=== PATIENT | female | born 1985 | race Caucasian/White ===

== ENCOUNTER 2022-01-04 06:12 | Inpatient (IN) | payer OTHER ==
[~2022-01-04] VITALS: Ht 165.1 cm; Wt 89.8 kg
[~2022-01-04 06:12] MED LIST: ACYCLOVIR800 MG PO; FLEXERIL10 MG PO; IBUPROFEN800 MG PO; KEFLEX500 MG PO; NEURONTIN100 MG PO; NORCO 5-325 TA1 EACH PO; PREDNISONE20 MG PO; PROZAC20 MG PO; VITAFOL-OB+DHA1 EACH
--- NOTE | 2022-01-31 08:39 | NUR ---
01/31/22 0839 Kirsty Qiu 0829 PATIENT INTO ROOM 104 FB. REPORT RECIEVED FROM NEHAL HELTON. PATIENT IS ALERT AND ORIENTED. BREATHING EQUAL AND UNLABORED. OXYGEN SATURATIONS ABOVE 95% ON ROOM AIR. SPINAL LEVEL CHECKED. FUNDAL MASSAGE COMPLETE. IVF INFUSING WITH 20 OF PIT. IV SITE LEFT FOREARM 18 GAUGE. PATENT. FATHER AT BEDSIDE HOLDING BABY NO QUESTIONS THIS RN AT BEDSIDE. 0838 PATIENT IS ALERT AND ORIENTED. BREATHING EQUAL AND UNLABORED. OXYGEN SATURATIONS ABOVE 95% ON ROOM AIR. PATIENT DENIES FEELING NAUSEATED OR PAIN. SCD'S APPLIED AND IVF INFUSING.
--- NOTE | 2022-02-01 09:51 | PR ---
[facility] [address] [facility] [place] [id number] Signed PP Progress Notes Datetime Report Generated by CPN: 02/01/2022 09:51 SUBJECTIVE: [id number] Pain: Within Normal Limits Nausea/Vomiting: Denies Vital Signs: [id number] Vital Signs: Reviewed; Within Normal Limits Notable Details: PP HGb/Hct = 9.5/29.4 EXAM: Ongoing Abdomen/Uterus: Normal Lochia: Normal Extremities: Normal Incision: Normal IMPRESSION/PLAN/PROCEDURES: [id number] Impression: Normal Progression Plan: Continue Present Management Procedures: None Progress Notes: Doing well, without complaint, Baptiste out, tolerating food well. Signing Physician: Aneta Isidro MD Copies: ~ *Electronically Signed* 02/01/22 0951 ANETA ISIDRO MD PATIENT NAME: SHARON HAMILTON PROGRESS NOTE DATE OF : 87 PHYSICIAN: ANETA ISIDRO MD RPT #: [id number] REPORT IS CONFIDENTIAL AND NOT TO BE RELEASED WITHOUT AUTHORIZATION
--- NOTE | 2022-02-01 09:53 | OR ---
[facility] [address] [place] [id number] Signed DATE OF OPERATION: 01/31/2022 SURGEON: Shashank Morgan MD Patient of Dr. Morgan. PREOPERATIVE DIAGNOSES: 1. Term . 2. Previous section x2. 3. Gestational diabetes, diet controlled. POSTOPERATIVE DIAGNOSES: 1. Term . 2. Previous section x2. 3. Gestational diabetes, diet controlled. PROCEDURE: Repeat low transverse segment section, delivery of live female infant. MOLD YARD CRANE OPERATOR: Dr. Eagle. ANESTHESIA: Spinal. ESTIMATED BLOOD LOSS: 500 mL. COMPLICATIONS: None. DRAINS: Baptiste to bladder. FINDINGS: Live female infant, weight 6 pounds 2 ounces. Apgars 8 and 9. Normal uterus, normal tubes and ovaries bilateral. DESCRIPTION OF PROCEDURE: The patient was brought to the operating room, placed in supine position. After Electronically Signed By: SHASHANK MORGAN MD 02/01/22 0953 PATIENT NAME: SHARON HAMILTON OPERATIVE REPORT DATE OF : 87 REPORT #: [id number] PHYSICIAN: SHASHANK MORGAN MD PCP: PETER MCLAUGHLIN PA-C REPORT IS CONFIDENTIAL AND NOT TO BE RELEASED WITHOUT AUTHORIZATION [address] [address] Signed adequate spinal anesthesia was obtained, she was prepped and draped in usual sterile fashion. Baptiste catheter was placed in the bladder. Pfannenstiel skin incision made through previous surgical scar. Subcutaneous tissue was dissected with the Bovie and scalpel. The fascia was nicked with scalpel and extended in transverse fashion using curved scissors. The underlying abdominal musculature was bluntly and sharply from the fascia above and below the incision. The abdominal musculature was bluntly sharply along the midline. The peritoneum grasped with hemostats, elevated, nicked with curved scissors, extended in a vertical fashion using scissors and blunt dissection. The Reid self-retaining retractor was inserted into the incision and tightened in place. The lower uterine segment was identified. The vesicouterine peritoneum was slightly elevated and was thin. This was elevated at the edge, nicked with Metzenbaum scissors, and extended transverse fashion and the bladder flap bluntly taken down. The lower uterine segment was then nicked with scalpel and extended in a transverse fashion using finger dissection, clear fluid came from the incision. The infant was noted to be in the LOT presentation. head easily delivered from the incision. Rest of the was easily delivered from the incision. The cord was doubly clamped and cut. The passed off table in good condition to awaiting nurse. The placenta was manually removed. Uterine cavity explored with a lap pad to remove any retained membranes. There was small extension downward on the right side, so this was closed up to the normal angle using a running locking stitch of 0 Monocryl. A 2nd running locking stitch of 0-Monocryl starting at the end, other end was used to close the incision. A third running stitch of 0 Monocryl was used to imbricate the entire incision and extension. Good hemostasis was noted. The entire pelvis was irrigated, suctioned, and examined, and any superficial bleeding spots cauterized with the Bovie and good hemostasis was obtained. The Reid retractor was removed. The anterior wall peritoneum closed using running stitch of 2-0 Vicryl suture. The abdominal musculature was reapproximated using interrupted stitches of 0 Vicryl suture. The abdominal wall was irrigated, suctioned, and examined, and any bleeding spots cauterized with the Bovie. The fascia was then closed using two running stitches of 0 Vicryl suture meeting in the midline. Subcutaneous tissue was irrigated, suctioned, and examined, and any bleeding spots cauterized with the Bovie. Subcutaneous tissue was closed using interrupted stitches of 3-0 Vicryl suture. Skin was reapproximated using skin clips. The patient tolerated the procedure well went to recovery room in good condition. The sponge, needle, instrument count correct at the end of the procedure. Shashank Morgan MD MJB/MODL Electronically Signed By: SHASHANK MORGAN MD 02/01/22 0953 PATIENT NAME: SHARON HAMILTON OPERATIVE REPORT DATE OF : 87 REPORT #: [id number] PHYSICIAN: SHASHANK MORGAN MD PCP: PETER MCLAUGHLIN PA-C REPORT IS CONFIDENTIAL AND NOT TO BE RELEASED WITHOUT AUTHORIZATION [facility] [address] [place] [address] [place], [place] [address] Signed /[id number] Copies: ~ Electronically Signed By: SHASHANK MORGAN MD 02/01/22 0953 PATIENT NAME: SHARON HAMILTON OPERATIVE REPORT DATE OF : 87 REPORT #: [id number] PHYSICIAN: SHASHANK MORGAN MD PCP: PETER MCLAUGHLIN PA-C REPORT IS CONFIDENTIAL AND NOT TO BE RELEASED WITHOUT AUTHORIZATION
--- NOTE | 2022-02-02 09:16 | PR ---
[facility] [address] [place] [address] Signed PP Progress Notes Datetime Report Generated by CPN: 02/02/2022 09:16 SUBJECTIVE: [id number] Pain: Within Normal Limits Nausea/Vomiting: Denies Vital Signs: [id number] Vital Signs: Reviewed; Within Normal Limits Notable Details: PP HGb/Hct = 9.5/29.4 EXAM: Met Abdomen/Uterus: Normal Lochia: Normal Extremities: Normal Incision: Normal IMPRESSION/PLAN/PROCEDURES: [id number] Impression: Normal Progression Plan: Discharge Procedures: None Progress Notes: Doing well, without complaint, ready to go home. Signing Physician: Aneta Isidro MD Copies: ~ *Electronically Signed* 02/02/22 0916 ANETA ISIDRO MD PATIENT NAME: SHARON HAMILTON PROGRESS NOTE DATE OF : 87 PHYSICIAN: ANETA ISIDRO MD RPT #: [id number] REPORT IS CONFIDENTIAL AND NOT TO BE RELEASED WITHOUT AUTHORIZATION
== END 2022-02-02 12:20 | disposition home or self-care (01) | DRG 788 ==
LOC: FBC 01-31 05:09
PROVIDERS: ADMIT General Practice; ATTEND General Practice
PROC: 10D00Z1 Extraction of Products of Conception, Low, Open Approach (ICD-10-PCS; principal; 2022-01-31 07:30)
DX: O34.211 Maternal care for low transverse scar from previous cesarean delivery (principal); Z3A.39 39 weeks gestation of pregnancy; Z37.0 Single live birth; O99.334 Smoking (tobacco) complicating childbirth; F17.210 Nicotine dependence, cigarettes, uncomplicated; Z67.10 Type A blood, Rh positive; O24.420 Gestational diabetes mellitus in childbirth, diet controlled; Z20.822 Contact with and (suspected) exposure to COVID-19; O99.03 Anemia complicating the puerperium; D64.89 Other specified anemias
CPT/HCPCS: 01961; 36415; 85027; 86850; 86900; 86901; A9270; J0690; J1100; J1885; J2001; J2274; J2405; J2590; J7121

== ENCOUNTER 2023-10-02 14:05 | Emergency (ER) | payer OTHER ==
[~2023-10-02] VITALS: Ht 160 cm; Wt 57.2 kg
[~2023-10-02 14:05] MED LIST changes: +METHYLPREDNISOLO4 M1 PO; +NAPROSYN500 MG PO
[2023-10-02 17:00] VITALS: BP 117/62
== END 2023-10-02 17:52 | disposition home or self-care (01) ==
LOC: ED 14:05
DX: H11.31 Conjunctival hemorrhage, right eye (principal); K02.9 Dental caries, unspecified; M25.521 Pain in right elbow; F17.200 Nicotine dependence, unspecified, uncomplicated
CPT/HCPCS: 80053; 83605; 85025; 99282

== ENCOUNTER 2025-01-08 09:43 | Observation (INO) | payer OTHER ==
[~2025-01-08] VITALS: Ht 160 cm; Wt 65.3 kg
[~2025-01-08 09:43] MED LIST changes: +CHLORHEXIDINE473 ML; +MUPIROCIN22 GM TOP
[2025-01-08] MEDS ORDERED: SODIUM CHLORIDE 0.9% 1,000 ML IV ONE (10:00)
[2025-01-08 10:11] LABS: BASOPHILS 0.3 % (0.1-1.2); EOSINOPHILS 2.5 % (0.7-5.8); LYMPHOCYTES 9.8 % (19.3-51.7); MCH 32.1 PG (25.6-32.2); MCHC 34.3 g/dL (32.2-35.5); MCV 93.8 fL (79.4-94.8); MONOCYTES 4.7 % (4.7-12.5); NEUTROPHILS 82.4 % (34.0-71.1); RBC 4.98 M/uL (3.93-5.22)
[2025-01-08 10:28] LABS: ALT (SGPT) 26.0 U/L (14-59); AST (SGOT) 10.0 U/L (15-37); GLOMERULAR FILTRATION RATE,EST 94.0 mL/min (>60); PROTEIN, TOTAL 8.1 g/dL (6.4-8.2); UREA NITROGEN 8.0 mg/dL (7-18)
[2025-01-08 10:31] LABS: LACTIC ACID, BLOOD 1.0 mmol/L (0.4-2.0)
[2025-01-08] MEDS ORDERED: HYDROmorphone HCL 1 MG/ML SYR IV PRN ×2 (11:45→14:30)
[2025-01-08] MEDS ORDERED: OXYCODONE/APAP 5/325 TAB PO PRN ×2 (12:15)
[2025-01-08] MEDS ORDERED: DEXTROSE 5% - LACTATED RINGERS 1,000 ML IV SCH ×2 (12:15)
[2025-01-08] MEDS ORDERED: MORPHINE SULFATE 10 MG/ML VIAL IV PRN ×2 (12:15)
[2025-01-08] MEDS ORDERED: KETOROLAC TROMETHAMINE 30 MG/ML VIAL IV PRN ×2 (12:15)
[2025-01-08] MEDS ORDERED: ROCURONIUM BROMIDE 50 MG/5 ML SYR ONE (12:27)
[2025-01-08] MEDS ORDERED: MIDAZOLAM HCL 2 MG/2 ML VIAL ONE (12:27)
[2025-01-08] MEDS ORDERED: DEXAMETHASONE SOD PHOS 4 MG/ML VIAL ONE (12:27)
[2025-01-08] MEDS ORDERED: SUGAMMADEX SODIUM 200 MG/2 ML ML ONE (12:27)
[2025-01-08] MEDS ORDERED: SUCCINYLCHOLINE IN 0.9% NACL 200 MG/10 ML SYRINGE ONE (12:27)
[2025-01-08] MEDS ORDERED: KETOROLAC TROMETHAMINE 30 MG/ML VIAL ONE (12:27)
[2025-01-08] MEDS ORDERED: LIDOCAINE HCL 2% 5 ML SDV ONE (12:27)
[2025-01-08] MEDS ORDERED: fentaNYL citrate 100 MCG/2 ML VIAL ONE (12:28)
[2025-01-08] MEDS ORDERED: BUPIVACAINE HCL 0.5% 30 ML VIAL ONE (12:32)
[2025-01-08] MEDS ORDERED: fentaNYL citrate 50 MCG/ML SDV ONE (14:11)
[2025-01-08] MEDS ORDERED: fentaNYL citrate 50 MCG/ML SDV IV PRN (14:30)
[2025-01-08] MEDS ORDERED: ACETAMINOPHEN 1,000 MG/100 ML VIAL IV PRN (14:30)
[2025-01-08] MEDS ORDERED: MEPERIDINE HCL 25 MG/1 ML VIAL IV PRN (14:30)
[2025-01-08] MEDS ORDERED: NALOXONE HCL 0.4 MG SYR IV PRN (14:30)
--- NOTE | 2025-01-08 14:48 | NUR ---
01/08/25 1448 Soni Chavis 1356 PT ARRIVED TO PACU ON 6L VIA MASK, JAW THRUST USED TO MAINTAIN AIRWAY. ORAL AIRWAY IN PLACE. 1403 PT WOKE AND SAT UP IN BED AND STARTS GRABBING HER FACE. RN ORIENTING PT TO PACU. ORAL AIRWAY AND O2 MASK REMOVED. PT GRAMICING. "I AM JUST REALLY CONFUSED." 1408 PT RESTING BACK IN BED AND REPORTS PAIN IS 4/10 BUT INCREASING. 1415 PT REPROTS PAIN IS 6/10 AND PAIN MEDICATION GIVEN. 1420 PT REPORTS NO CHANGE IN PAIN, PT GRIMACING AND HOLDING ABD.
--- NOTE | 2025-01-08 15:00 | NUR ---
PT ARRIVED TO [place] VIA STRETCHER TO ROOM 115. REPORT RECIEVED FROM SUNITHA HANNON. PT HAS 1/10 PAIN, TOLERABLE. DISCUSSED WITH PT THAT THE SURGEON DISCUSSED IF PATIENT IS EATING, PAIN TOLERATED, AND IS WALKING TO TALL SURGEON AND POTENTIALLY DISCUSS DISCHARGING. PT HAS NO CONCERNS WITH THE POC. VSS. ABD LAP SITES INTACT, BOWEL TONES ACTIVE.
[2025-01-08 15:34] VITALS: BP 114/70
[2025-01-08 15:51] VITALS: BP 114/70
[2025-01-08 16:05] VITALS: BP 109/67
--- NOTE | 2025-01-08 16:20 | NUR ---
PT OOB TO BRP TO VOID. STEADY GAIT, USING PILLOW FOR SPLINTING. VOID DK YELLOW URINE 125ML
[2025-01-08] MEDS ORDERED: SEVOFLURANE 250 ML BTL INH ONE (16:56)
[2025-01-08 17:05] VITALS: BP 108/60
--- NOTE | 2025-01-08 17:15 | NUR ---
PT VSS, ASSISTED OOB TO BRP, VOID DK YELLOW URINE. PT DENIES PAIN AND NAUSEA. PT TOLERATED 100% OF AFTERNOON MEAL. IV INFUSING TO LAC, SPO2, SCD'S IN USE. CALL SABILLON IN REACH, BED IN LOW POSITION AND LOCKED, SIDERAILS UP X2. PT HOPING FOR DISCHARGE THIS EVENING.
--- NOTE | 2025-01-08 17:28 | NUR ---
called dr. Ramires to update on pt meeting all requirements. will be in shortly
== END 2025-01-08 18:20 | disposition home or self-care (01) ==
LOC: ED 09:43 → MS 09:45
PROVIDERS: Emergency Medicine; ADMIT Surgery; ATTEND Surgery
PROC: 0DTJ0ZZ Resection of Appendix, Open Approach (ICD-10-PCS; principal; 2025-01-08 13:00)
DX: K35.80 Unspecified acute appendicitis (principal); F17.210 Nicotine dependence, cigarettes, uncomplicated
CPT/HCPCS: 00840; 36415; 74177; 80053; 83605; 84703; 85025; 87040; 88304; 96361; 96365; 96375; 99285-25; J0131; J0330; J0696; J1100; J1171; J1885; J2003; J2250; J2405; J2704; J3010; J3490; J7030; Q9967